=== PATIENT | female | born 1985 | race Caucasian/White ===

== ENCOUNTER 2017-06-20 20:22 | Emergency (ER) | payer OTHER ==
[~2017-06-20] VITALS: Ht 175.3 cm; Wt 111.6 kg
[2017-06-20 20:36] VITALS: Ht 175.3 cm; Wt 111.6 kg
[2017-06-20 22:33] VITALS: BP 159/106
== END 2017-06-20 22:33 | disposition home or self-care (01) ==
LOC: ED 20:22
DX: K02.9 Dental caries, unspecified (principal); R03.0 Elevated blood-pressure reading, without diagnosis of hypertension